=== PATIENT | female | born 1930 | race Caucasian/White ===

== ENCOUNTER 2017-10-15 00:24 | Emergency (ER) | payer MEDICARE | END 2017-10-15 01:19 | disposition home or self-care (01) | LOC: BURERS 00:24 | DX: R04.0 Epistaxis (principal); E78.5 Hyperlipidemia, unspecified; I10 Essential (primary) hypertension; I25.10 Atherosclerotic heart disease of native coronary artery without angina pectoris; Z86.73 Personal history of transient ischemic attack (TIA), and cerebral infarction without residual deficits; Z79.82 Long term (current) use of aspirin; Z79.891 Long term (current) use of opiate analgesic; Z79.899 Other long term (current) drug therapy | CPT/HCPCS: 99283 ==

== ENCOUNTER 2017-10-28 19:20 | Emergency (ER) | payer MEDICARE ==
[2017-10-28] MEDS ORDERED: Ibuprofen 200 MG TAB ONE ×2 (20:17→20:21)
[2017-10-28] MEDS ORDERED: traMADol HCl 50 MG TAB ONE (20:17)
--- NOTE | 2017-10-28 21:04 | CT ---
CT OF THE BRAIN WITHOUT CONTRAST: 10/28/17 Comparison is made with the prior exam dated 12/14/14. No acute changes were noted. Diffuse atrophy with mild compensatory dilatation of the ventricles is p resent. There is no ventricular shift. Prominent areas of deep white matter and periventricular lucen cy are typical of chronic white matter ischemia. There is some cerebellar atrophy. No intracranial bl eeding or extra-axial hematoma was seen. The calvarium appears intact. All of the sinuses and mastoid air cells were clear. No fractures were seen. IMPRESSION: Chronic ischemic changes, but no acute intracranial findings. POS: HOME
--- NOTE | 2017-10-28 21:05 | RAD ---
RIGHT CLAVICLE TWO VIEWS: 10/28/17 The bones are osteopenic. No fracture or dislocation was appreciated. Bony spurring is seen in the AC joint. A calcified granuloma is noted in the right lung. Subtle fractures might be missed due to the osteopenia. Some bony spurring around the lip of the glenoid is noted but this does not appear acut e. IMPRESSION: No acute findings. Clavicle intact. POS: HOME
--- NOTE | 2017-10-28 21:10 | RAD ---
RIGHT SHOULDER THREE VIEWS: 10/28/17 No fracture or dislocation was seen. On the Y-view, the humeral head appeared to sit slightly more an teriorly than usual, but the shoulder obviously moves well between views, so no kwaku dislocation is present. The AC joint is not widened. The visible adjacent ribs appeared intact. IMPRESSION: No acute findings. POS: HOME
== END 2017-10-28 20:20 | disposition home or self-care (01) ==
LOC: BURERS 19:20
DX: S09.90XA Unspecified injury of head, initial encounter (principal); S40.011A Contusion of right shoulder, initial encounter; S50.311A Abrasion of right elbow, initial encounter; E78.5 Hyperlipidemia, unspecified; I10 Essential (primary) hypertension; Z86.73 Personal history of transient ischemic attack (TIA), and cerebral infarction without residual deficits; I25.10 Atherosclerotic heart disease of native coronary artery without angina pectoris; Z79.899 Other long term (current) drug therapy; Z79.82 Long term (current) use of aspirin; W18.30XA Fall on same level, unspecified, initial encounter
CPT/HCPCS: 70450